=== PATIENT | female | born 1965 | race African-American/Black ===

== ENCOUNTER 2018-04-18 10:04 | Emergency (ER) | payer MEDICARE ==
[~2018-04-18] VITALS: Ht 172.7 cm; Wt 68.0 kg
[2018-04-18 10:47] VITALS: BP 139/79
== END 2018-04-18 12:56 | disposition left against medical advice (07) ==
LOC: ER 10:04
DX: I62.00 Nontraumatic subdural hemorrhage, unspecified (principal)
CPT/HCPCS: 70450; 99291